=== PATIENT | female | born 2000 | race Caucasian/White ===

== ENCOUNTER 2021-06-11 17:21 | Emergency (ER) | payer OTHER, SELFPAY ==
[2021-06-11 17:36] VITALS: BP 147/78; PULSE 100; RESP 20; TEMP 37; O2SAT 100
--- NOTE | 2021-06-11 18:55 | ED.SKABFB ---
HPI - Skin/Abscess/Foreign Bdy General Chief complaint: Skin/Abscess/Foreign Body Stated complaint: poison [place] Time Seen by Provider: 06/11/21 18:56 Source: patient, RN notes reviewed and old records reviewed Mode of arrival: ambulatory Limitations: no limitations History of Present Illness HPI narrative: 20 year old female who presents [facility] with 2 day history of rash to bilateral gluteal fold, right upper thigh and to left thumb which garcia and itches. Patient states that she [place] in [place]ings on and then she has developed this rash. Rash is red with raised skin tissue, no drainage noted, and irregular in formation, is itchy and has been applying hydrocortisone to rash. MD complaint: rash Related Data Home Medications Medication Instructions Recorded Confirmed No Home Medications 06/11/21 06/11/21 Allergies Allergy/AdvReac Type Severity Reaction Status Date / Time No Known Allergies Allergy Verified 06/11/21 17:57 Review of Systems Review of Systems: CONSTITUTIONAL: Denies fever, chills, or sweats. EYES: Denies visual changes, redness, or discharge. ENT: Denies rhinorrhea, congestion, sore throat, or otalgia. CARDIOVASCULAR: Denies chest pain, palpitations, or edema. RESPIRATORY: Denies cough or dyspnea. GASTROINTESTINAL: Denies abdominal pain, nausea, vomiting, or diarrhea. GENITOURINARY: Denies dysuria or hematuria. SKIN: Positive for rash and itching to bilateral skin fold of buttocks, right upper thigh and left thumb MUSCULOSKELETAL: Denies back pain, joint pain, or myalgia. NEUROLOGIC: Denies headache, numbness, or weakness. PSYCHIATRIC: Denies anxiety or depression. All systems reviewed & are unremarkable except as noted in HPI and below PMFSH Past Medical History Medical History (Updated 06/17/21 @ 10:14 by Rosa Pardo NP) No pertinent past medical history Surgical History Surgical History (Updated 06/17/21 @ 10:15 by Rosa Pardo NP) Hx of appendectomy S/P wisdom tooth extraction Social History Social History (Updated 06/17/21 @ 10:15 by Rosa Pardo NP) Tobacco type: e-cigarettes/vaping Alcohol intake: never Substance use type: does not use Living arrangements: with family Gender identity (if verbalized by the patient): Female Comments At time of signature, agree with nursing past medical, surgical, social and family history. There is no relevant family history pertinent to the presenting complaint Exam Narrative: GENERAL: Well-appearing, well-nourished, and in no acute distress. HEAD: Normocephalic, atraumatic. EYES: PERRLA and EOMI. ENT: Nares clear, no rhinorrhea or epistaxis. Mucous membranes moist. TM's normal Throat normal with no lesions NECK: Supple.no lymphadenopathy CHEST: Clear to auscultation. No respiratory distress.SAO2 100% on room air HEART: Regular rate and rhythm. No murmur heard. Normal peripheral pulses. ABDOMEN: Soft, nontender, nondistended, normal active bowel sounds. EXTREMITIES: Normal range of motion. No edema. SKIN: Warm, dry, red raised itchy rash to bilateral gluteal fold, right upper thigh and left thumb which has no vesicle formation or drainage. states areas burn NEURO: No focal deficits. Alert and oriented x3. Course Vital Signs Vital signs: Vital Signs Temperature 37.0 C 06/11/21 17:36 Pulse Rate 100 06/11/21 17:36 Respiratory Rate 06/11/21 17:36 Blood Pressure 147/78 H 06/11/21 17:36 Pulse Oximetry 100 06/11/21 17:36 Temperature 37.0 C 06/11/21 17:36 Pulse Rate 100 06/11/21 17:36 Respiratory Rate 20 06/11/21 17:36 Blood Pressure 147/78 H 06/11/21 17:36 Pulse Oximetry 100 06/11/21 17:36 MDM - Skin/Abscess/Foreign Bdy Differential Diagnosis Differential diagnosis: Likely abscess of skin or subcutaneous tissue, urticaria, eczema and contact dermatitis Medical Records Attestation: I reviewed the patient's medical records. Critical Care Time Critic
== END 2021-06-11 19:08 | disposition home or self-care (01) ==
PROVIDERS: Emergency Provider Registered Nurse
DX: L25.9 Unspecified contact dermatitis, unspecified cause (principal); F17.200 Nicotine dependence, unspecified, uncomplicated
CPT/HCPCS: 99213; G0463

== ENCOUNTER 2024-01-19 18:28 | Emergency (ER) | payer OTHER, BC, SELFPAY ==
[2024-01-19 18:36] VITALS: BP 132/66; PULSE 91; RESP 20; TEMP 37.7; O2SAT 100
--- NOTE | 2024-01-19 19:47 | ED.EXTPRO ---
HPI - Extremity Problem General Chief complaint: Extremity Problem,Nontraumatic Stated complaint: Right foot bite/swollen Time Seen by Provider: 01/19/24 19:00 Source: patient, RN notes reviewed and old records reviewed Mode of arrival: ambulatory Limitations: no limitations History of Present Illness HPI Narrative: 23 year old female who presents to express care with complaints of two raised itchy questionable bug bites/rash to the dorsal lateral area of her right foot with some swelling noted [place] [employer] [place].Patient has some redness to tissue area with itching, has applied hydrocortisone cream to area. MD Complaint: other (redness itching raised tissue area to top of right foot with itching) Onset (ago): day(s) (3-4 days) Location: right and other (foot) Quality: other (itchy) Related Data Allergies Allergy/AdvReac Type Severity Reaction Status Date / Time No Known Allergies Allergy Verified 01/19/24 18:48 Review of Systems Review of Systems: CONSTITUTIONAL: Denies fever, chills, or sweats. CARDIOVASCULAR: Denies chest pain, palpitations, or edema. RESPIRATORY: Denies cough or dyspnea. SKIN: Reports rash with redness and swelling dorsal right foot MUSCULOSKELETAL: Denies joint pain or myalgia. NEUROLOGIC: Denies headache, numbness, or weakness. All systems reviewed & are unremarkable except as noted in HPI and below PMFSH Past Medical History Medical History No pertinent past medical history Surgical History Surgical History (Updated 01/21/24 @ 10:35 by Rosa Pardo NP) History of dilatation and curettage History of hysteroscopy Hx of appendectomy S/P wisdom tooth extraction Social History Social History (Updated 06/17/21 @ 10:15 by Rosa Pardo NP) Tobacco type: e-cigarettes/vaping Alcohol intake: never Substance use type: does not use Living arrangements: with family Gender identity (if verbalized by the patient): Female Comments At time of signature, agree with nursing past medical, surgical, social and family history. There is no relevant family history pertinent to the presenting complaint Exam Narrative: GENERAL: Well-appearing, well-nourished, and in no acute distress. HEAD: Normocephalic, atraumatic. EYES: PERRLA, conjunctivae clear, and EOMI. ENT: Mucous membranes moist. Oropharynx without edema, erythema or lesions. NECK: Supple. No lymphadenopathy CHEST: Clear to auscultation. No respiratory distress.SAO2 100% on room air HEART: Regular rate and rhythm. SKIN: Warm, dry.? Patches of erythema and edema with jess swelling to the dorsal lateral area f right foot, no drainage noted is itchy NEURO:? Alert and oriented x3. PSYCH: Normal mood and affect Course Course Emergency Course: Patient is aware of diagnosis, understands and agrees to treatment plan.? Anticipatory guidance given.? Patient agrees to follow-up as directed and is aware of reasons to seek care at the emergency department. Portions of this record may have been created with voice recognition software Level of Care: Express Care Visit Vital Signs Vital signs: Vital Signs Temperature 37.7 C H 01/19/24 18:36 Pulse Rate 91 01/19/24 18:36 Respiratory Rate 20 01/19/24 18:36 Blood Pressure 132/66 01/19/24 18:36 Pulse Oximetry 100 01/19/24 18:36 Oxygen Delivery Room Air 01/19/24 18:36 Temperature 36.8 C 01/19/24 20:00 Pulse Rate 91 01/19/24 18:36 Respiratory Rate 20 01/19/24 18:36 Blood Pressure 132/66 01/19/24 18:36 Pulse Oximetry 100 01/19/24 18:36 Oxygen Delivery Room Air 01/19/24 18:36 Reviewed MDM - Extremity (Nontraumatic) Differential Diagnosis Differential diagnosis: Likely cellulitis and other (rash dorsal foot, swelling of dorsal foot, contact dermatitis) Medical Records Attestation: I reviewed the patient's medical recor
[2024-01-19 20:00] VITALS: TEMP 36.8
== END 2024-01-19 20:00 | disposition home or self-care (01) ==
PROVIDERS: Emergency Provider Registered Nurse
DX: R21 Rash and other nonspecific skin eruption (principal); R22.41 Localized swelling, mass and lump, right lower limb; F17.290 Nicotine dependence, other tobacco product, uncomplicated
CPT/HCPCS: 99213; G0463